=== PATIENT | female | born 1985 | race Caucasian/White ===

== ENCOUNTER → 2018-12-27 15:05 | Observation (INO) ==
[2018-12-27 13:32] LABS: Basophils % 0.2 %; Eosinophils # 0.1 K/mcL (0.0-0.6); Eosinophils % 0.5 %; Hematocrit 36.5 % (35.3-44.9); Hemoglobin 12.2 g/dL (11.5-15.4); Immature Granulocytes % 0.4 % (0-4); Lymphocytes # 1.8 K/mcL (0.6-4.6); Lymphocytes % 14.4 %; Mean Corpuscular HGB Conc 33.4 g/dL (31.6-35.5); Mean Corpuscular Hemoglobin 33.3 pg (28.0-33.3); Mean Corpuscular Volume 99.7 fL (83.0-100.0); Mean Platelet Volume 10.4 fL (9.4-12.4); Monocytes # 0.8 K/mcL (0.0-1.3); Monocytes % 6.3 %; Neutrophils # 9.5 K/mcL (1.6-8.9); Platelet Count 161 K/mcL (140-400); Red Blood Count 3.66 M/mcL (3.82-4.97); Red Cell Distribution Width 13.2 % (11.5-14.5); Segmented Neutrophils % 78.2 %; White Blood Count 12.2 K/mcL (4.3-11.1)
[2018-12-27 13:53] LABS: Alanine Aminotransferase 11 Units/L (7-52); Aspartate Amino Transferase 16 Units/L (13-39); BUN/Creatinine Ratio 20 (6-26); Blood Urea Nitrogen 9 mg/dL (6-20); Lactate Dehydrogenase 137 Units/L (140-271); eGFR For African Americans > 60 (> 60); eGFR For Non-African Americans > 60 (> 60)
[2018-12-27 13:57] LABS: Bilirubin,Urine Negative (Negative); Blood,Urine Small (Negative); Clarity,Urine Clear (Clear); Color,Urine Yellow (Yellow); Glucose,Urine (UA) Normal (Normal); Ketones,Urine Negative (Negative); Leukocyte Esterase,Urine Negative (Negative); Nitrite,Urine Negative (Negative); PH,Urine 6.5 pH Units (5.0-8.0); Protein,Urine Negative (Neg-Trace); Specific Gravity,Urine 1.009 (1.010-1.025); Urobilinogen,Urine Normal (Normal)
[2018-12-27 14:07] LABS: Amphetamine Screen,Urine Negative ng/mL (Cutoff=1000); Barbiturate Screen,Urine Negative ng/mL (Cutoff=200); Benzodiazepines Screen,Urine Negative ng/mL (Cutoff=200); Cannabinoid Screen,Urine Negative ng/mL (Cutoff = 50); Cocaine Screen,Urine Negative ng/mL (Cutoff= 300); Creatinine,Urine 15 mg/dL; Opiate Screen,Urine Negative ng/mL (Cutoff=300); Phencyclidine Screen,Urine Negative ng/mL (Cutoff=25)
[2018-12-27 14:12] LABS: Bacteria,Urine Few per hpf (None-Few); RBC,Urine 0-3 per hpf (0-3); Squamous Epithelial Cell,Urine Few per lpf (None-Few); WBC,Urine 0-3 per hpf (0-3)
--- NOTE | 2018-12-27 15:01 | OB/GYN Progress Note ---
Date of Encounter: 12/27/18 Time of Encounter: 14:51 - Assessment and Plan (1) 37 weeks gestation of Current Visit: Yes Status: Acute (2) Abdominal pain affecting Current Visit: Yes Status: Acute Rare contractions on toco. SVE unchanged from last visit. LFT's normal. Pain in location of head. Suspect pain may be related to position. Comfot measures and techniques to get baby to turn discussed. Discharge home with precautions. (3) Decreased movement Current Visit: Yes Status: Acute NST reactive. Kick counts reviewed. Qualifiers: Fetus number: single or unspecified fetus Trimester: third trimester Qu alified Code(s): O36.8130 - Decreased movements, third trimester, not applicable or unspecified (4) NST (non-stress test) reactive Current Visit: Yes Status: Acute Subjective - Subjective Interval history: 33 year-old female presenting at 37w5d with c/o burning pain on right side of abdomen and decreased movement since yesterday. She denies leaking, bleeding, headaches, vision changes or other complaints. She reports occasional contractions. Antepartum ROS: contractions, no loss of fluid, no vaginal bleeding, no movement normal Objective - Exam FHR: category 1 Auscultation: bilateral: normal Abdomen: Present: soft, gravid Uterus: Absent: tenderness Cervical dilation: 1-2cm, thick, no change from last visit. Unable to feel presenting part. Suspect transverse lie based on leopolds - Labs Labs: Abnormal lab results WBC 12.2 K/mcL (4.3-11.1) H 12/27/18 13:07 RBC 3.66 M/mcL (3.82-4.97) L 12/27/18 13:07 Neutrophils # 9.5 K/mcL (1.6-8.9) H 12/27/18 13:07 Creatinine 0.44 mg/dL (0.60-1.20) L 12/27/18 13:07 Lactate Dehydrogenase 137 Units/L (140-271) L 12/27/18 13:07 Ur Specific [place] 1.009 (1.010-1.025) L 12/27/18 13:45 Urine Blood Small (Negative) H 12/27/18 13:45 Ur Culture Indicated? YES (NO) A 12/27/18 13:45 Protein/Creatinin Ratio 0.80 mg/mg (0.00-0.20) H 12/27/18 13:45
[2018-12-27 15:13] LABS: Amylase 37 Units/L (29-103); Lipase 19 Units/L (11-82)
== END | disposition home or self-care (01) ==
LOC: 1NENULAB
PROVIDERS: ADMIT Obstetrics & Gynecology; ATTEND Obstetrics & Gynecology

== ENCOUNTER 2018-12-29 14:30 | Inpatient (IN) ==
[2018-12-29] MEDS ORDERED: Oxytocin 20 units/ LR 1000 mL 20 UNIT/1,000 ML BAG IVC ONE ×2 (14:41→16:33)
[2018-12-29] MEDS ORDERED: Naloxone 0.4 MG/ML INJ IVP PRN (15:28)
[2018-12-29] MEDS ORDERED: Famotidine 20 MG/2 ML VIAL IVP PRN (15:28)
[2018-12-29] MEDS ORDERED: Metoclopramide 10 MG/2 ML VIAL IVP PRN (15:28)
--- NOTE | 2018-12-29 16:31 | OB/GYN History & Physical ---
Date of Encounter: 12/29/18 Time of Encounter: 16:14 Assessment and Plan (1) 38 weeks gestation of Current visit: Yes Status: Acute (2) Uterine contractions Current visit: Yes Status: Acute Admit to labor and delivery Anticipate precipitous vaginal delivery GBS negative History of Present Illness HPI: Ms. El is a 33 year old female 38 weeks gestation presents to triage with labor. Patient states contractions started on Saturday became much stronger this morning. Patient denies rupture membranes. with Dr. Brown. care complicated by earlier placental cyst, resolved by MFM scan, grand multiparity, varicose veins, a shunt states history of blood clotting after deliveries, states was worse after last delivery, never put on anticoagulation. Labs: A+, rubella and varicella immune, GBS negative. 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 Psychiatric history: depression - Past Surgical History Surgical History: no surgical history - Social History Smoking Status: Never smoker Smokeless Tobacco Status: No Alcohol use: none Drug use: none - Family History Mother Family Member Ethnicity: Non- Living Status: Still Living Hx Family Cardiac Disorders: No Hx Family Respiratory Disorders: No Hx Family Cancer: No Hx Family GI Disorders: No Hx Family Genitourinary Disorders: No Hx Family Endocrine Disorder: No Hx Family Musculoskeletal Disorders: No Hx Family Neuromuscular Disorders: No Hx Family Neurologic Disorders: No Hx Family HEENT Disorders: No Hx Family Autoimmune Disorders: No Hx Family Reproductive Disorders: No Hx Family Psychosocial Disorders: No Hx Family Medical Disorders: No Obstetrical History - Pregnancies : 6 Para: 5 Term: 5 : 0 Ab's: 0 Livin Exam - Vital Signs Vital signs: Initial Vital Signs Temp Pulse Resp 102.7 F H 170 50 12/29/18 14:55 12/29/18 14:55 12/29/18 14:55 - Constitutional Constitutional: well developed, well nourished, no acute distress - Neck Neck exam: full ROM - Lungs Respiratory exam: CTAB - Cardiovascular Cardiovascular exam: RRR - Abdomen Abdomen: Present: gravid, non tender - Extremities Extremities exam: normal capillary refill - Cervix Dilation: 8 Effacement: 100 Station: -2 - Anus/Rectum Anus/Rectum: Present: normal perianal skin Results All other labs normal. - VTE Reasons for not Prescribing Prophylaxis: Treatment not Indicated - Low risk for VTE
--- NOTE | 2018-12-29 16:59 | OB/GYN Procedure Note ---
Delivery - Delivery Date: 12/29/18 Provider: Lizzeth Rehman Intrapartum events: precipitous labor- <3hr Delivery induction: none Delivery monitor: external FHT Anesthesia: none Quantitated Blood Loss: 200 - Infant (s) A Infant Delivery Date: 12/29/18 Delivery Time: 14:54 Presentation: vertex Position: BLADIMIR Route of delivery: Gender: Female Viability: Viable Pounds: 7 Ounces: 10 Weight Gram: 200 kg at 1 minute: 8 at 5 mins: 9 Shoulder Dystocia: not encountered Specimens collected: cord blood Placenta: spontaneous Cord: 3 umbilical vessels - Repair Episiotomy: none Laceration Description: Perineal - 1st Degree - Complications Delivery complications: none Delivery comments: Admitted in spontaneous labor, quickly progressed to complete, AROM at 10 cm. Maternal bearing down efforts of liveborn female. Vertex delivered BLADIMIR, shoulders and body easily followed. No nuchal cord or shoulder dystocia encountered. Vigorous infant placed on maternal abdomen Apgars 8/9. Cord clamped and cut before 5 minute at request of nursery team to evaluate infant warmer. Sent to delivered spontaneously (Osmar) complete and intact upon inspection. Fundus massaged until firm and Pitocin started per policy. First degree perineal laceration left hemostatic and unrepaired. EBL 200. Dr. Bell in attendance delivery for initial abnormal presentation. - Disposition Mom disposition: stable in LDR disposition: stable in LDR
[2018-12-29] MEDS ORDERED: Oxytocin 20 units/ LR 1000 mL 20 UNIT/1,000 ML BAG IVC SCH (18:14)
[2018-12-29] MEDS ORDERED: Acetaminophen 325 MG TABLET PO PRN (18:14)
[2018-12-29] MEDS ORDERED: Ibuprofen 600 MG TABLET PO PRN (18:14)
[2018-12-30] MEDS ORDERED: *HR* Enoxaparin 40 MG/0.4 ML SYRINGE SQ SCH (06:00)
[2018-12-30 07:24] VITALS: BP 97/63
[2018-12-30] MEDS ORDERED: Prenatal Vit/FA 1 EACH TABLET PO SCH (09:00)
--- NOTE | 2018-12-30 09:09 | Internal Med Progress Note ---
<Mel Bloom M - Last Filed: 12/30/18 10:33> Hospitalist Progress Note - Encounter Date of Encounter: 12/30/18 Time of Encounter: 08:52 - Subjective Interval History: Pt examined at bedside today; resting comfortably in bed with in room. No other complaints or acute events overnight to report. Reports feeling good overall with complaints of left lower leg pain that started on Saturday12/28/18. Patient reports , delivery pain under control, is able to ambulate, reports cramping that's manageable, some bleeding that she reports is normal amount compared to previous pregnancies. Reports that varicose veins are still present and are painful; she uses home remedies (potatoes) to manage that at home. Doppler findings discussed with patient; all questions answered. Denies nausea, vomiting, chest pain, or abdominal pain other than normal cramping. - Exam Vitals: Temp Pulse Resp BP Pulse Ox 97.6 F 60 16 97/63 99 12/29/18 19:14 12/30/18 07:23 12/30/18 07:23 12/30/18 07:23 12/30/18 07:23 Exam: GEN: pleasant, NAD, WN/WD CV: RRR, no murmurs or gallops, normal capillary refill, distal pulses present bilterally. RESP: CTA bilaterally, no whezing, rhonci, or rales ABD: normal bowel sounds x4, no tenderness or guarding. uterine fundus hard, about ~1cm below umblicus. MSK: varicose veins and phlebitis throughout both LE anteriorly and posteriorly. L ankle swelling, L calf pain/knot, and L popliteal fossa pain/knot since Saturday12/28/18. Ankle pulses present bilaterally. NEURO: AOx3, able to hold conversation and answer questions appropriately - Assessment and Plan (1) exam Current Visit: Yes Status: Acute Assessment and Plan: Patient is 1 day . Exam notes as above. Plan: - For DVT prophyalxis, encourage patient to ambulate, continue prophylaxis Lovenox 40mg and SCDs while at hospital. - Continue Ibuprofen prn for pain, iron supp for anemia (2) care following vaginal delivery Current Visit: Yes Status: Acute Assessment and Plan: Plan as above. (3) Superficial thrombophlebitis Current Visit: Yes Status: Chronic Assessment and Plan: History of varicosities bilateral LE. New superficial clots noted on exam which were determined to be superficial thrombophlebitis by doppler. Plan: - DVT prophylaxis as above - Advise patient to hydrate, apply warm compresses, wear compression stocking, NSAIDs prn for pain DVT Prophylaxis: Lovenox 40mg and SCDs - Time Spent with Patient Total time spent is greater than 50% in coordination of care (as documented) at patient's floor/unit and/or counseling patient: Plan of Care Discussed with: patient - VTE Reasons for not Prescribing Prophylaxis: Treatment not Indicated - Low risk for VTE Documentation of Mechanical Device: Intermittent pneumatic compression device Consult Discharge Plan - Plan Referrals: NONE,PCP [Primary Care Provider] - <Dangelo Grajeda - Last Filed: 12/30/18 17:38> Hospitalist Progress Note - Encounter Date of Encounter: 12/30/18 - Exam Vitals: Temp Pulse Resp BP Pulse Ox 97.6 F 60 16 97/63 99 12/29/18 19:14 12/30/18 07:23 12/30/18 07:23 12/30/18 07:23 12/30/18 07:23 - Assessment and Plan (1) 38 weeks gestation of Current Visit: Yes Status: Acute (2) Uterine contractions Current Visit: Yes Status: Acute - Time Spent with Patient Total time spent is greater than 50% in coordination of care (as documented) at patient's floor/unit and/or counseling patient: - Attending Attestation I examined the patient with the medical student and I agree with his findings and assessment. Pls see separate discharge summary note. <Mel Bloom - Last Filed: 12/30/18 10:33> (3) Superficial thrombophlebitis Qualifiers: Superficial thrombophlebitis-Involved body area: lower extremity Laterality: bilateral Qualified Code(s): I80.03 - Phlebitis and thrombophlebitis of superficial vessels of lower extremities, bilateral
--- NOTE | 2018-12-30 17:42 | Discharge Summary ---
Date of Encounter: 12/30/18 Time of Encounter: 17:40 - Discharge Diagnosis (1) care following vaginal delivery Priority: Primary Status: Acute Comments: 33 y/o s/p PPD#1, Varicose veins Plan; Patient wants to go home, she got a shot of Lovenox though her dopplers are normal, ambulation encouraged at home, patient to follow up with Vascular Surgery though she does not have the funds for Lovenox at this time, ok for discharge Date of admission: 12/29/18 14:30 Primary care physician: PCP NONE Consults: 12/29/18 15:30 Consult to [employer] ([facility]) [CONS] Routine Reason For Exam: History of Suicidal Thoughts Reason for SW Consult: history of depression, she reports having suicidal thoughts four years ago which was 4 months after having a baby. She reports not acting on her thoughts but she was not treated. Patient scored a 16 on [place] Depression Scale 12/29/18 18:14 Consult to [employer] [CONS] Routine Comment: Vaginal delivery, consult needed - Patient Status Disposition: Home, Self-Care Condition: Good Functional capacity at discharge: independent ambulation Overall status at discharge: patient is progressing back to baseline - Discharge Instructions Follow Up With: NONE,PCP [Primary Care Provider] - Hospital Course PATHOLOGIST ASSISTANT Time Attestation: Total time spent providing and/or coordinating discharge services: Exam - Constitutional Vitals: Temp Pulse Resp BP Pulse Ox 97.6 F 60 16 97/63 99 12/29/18 19:14 12/30/18 07:23 12/30/18 07:23 12/30/18 07:23 12/30/18 07:23 - VTE Reasons for not Prescribing Prophylaxis: Treatment not Indicated - Low risk for VTE Documentation of Mechanical Device: Intermittent pneumatic compression device
== END 2018-12-30 18:54 | disposition home or self-care (01) | DRG 806 ==
LOC: 1NENULAB → OBSVTOIN 14:30 → 1NENUOBS 18:15
PROVIDERS: ADMIT Advanced Practice Midwife; ATTEND Advanced Practice Midwife